=== PATIENT | male | born 1990 | race Caucasian/White ===

== ENCOUNTER 2017-04-23 02:49 | Emergency (ER) | payer BC, OTHER ==
[~2017-04-23] VITALS: Ht 172.7 cm; Wt 58.5 kg
[2017-04-23 03:06] VITALS: Ht 172.7 cm; Wt 58.5 kg
[2017-04-23] MEDS ORDERED: ETOMIDATE 20 MG INJ IV STA (03:10)
[2017-04-23] MEDS ORDERED: KETOROLAC 30 MG INJ IV STA (03:12)
--- NOTE | 2017-04-23 03:42 | ERD ---
ER Documentation Chief Complaint Date/Time DATE: 04/23/17 TIME: 03:40 Chief Complaint right shoulder pain possible dislocation HPI This is a 26-year-old male comes in with right shoulder dislocation. He said he had while he slept. This is the third dislocation of that shoulder. Denies any other trauma. Denies any other current issues. ROS All systems reviewed and are negative except as per history of present illness. Allergies Allergies: Coded Allergies: No Known Allergy (Unverified , 05/23/14) PMhx/Soc History of Surgery: No Anesthesia Reaction: No Hx Neurological Disorder: No Hx Respiratory Disorders: No Hx Cardiac Disorders: No Hx Psychiatric Problems: No Hx Miscellaneous Medical Probl: Yes (right shoulder dislocation) Hx Alcohol Use: Yes (occasionally) Hx Substance Use: No Hx Tobacco Use: Yes (quit) Smoking Status: Former smoker Physical Exam Vitals Vital Signs Date Time Temp Pulse Resp B/P Pulse Ox O2 Delivery O2 Flow Rate FiO2 04/23/17 03:37 57 21 111/75 100 Room Air 4.0 04/23/17 03:32 97 15 124/82 100 Nasal Cannula 4.0 04/23/17 03:27 58 19 117/84 100 Nasal Cannula 2.0 04/23/17 03:06 97.8 64 18 119/63 97 Physical Exam Const: [] Head: Atraumatic Eyes: Normal Conjunctiva ENT: Normal External Ears, Nose and Mouth. Neck: Full range of motion..~ No meningismus. Resp: Clear to auscultation bilaterally Cardio: Regular rate and rhythm, no murmurs Abd: Soft, non tender, non distended. Normal bowel sounds Skin: No petechiae or rashes Back: No midline or flank tenderness Ext: No cyanosis, or edema Neur: Awake and alert Psych: Normal Mood and Affect Results 24 hrs Current Medications Medications (Trade) Dose Ordered Sig/Sung Route PRN Reason Start Time Stop Time Status Last Admin Dose Admin Etomidate (Amidate) 20 mg ONCE STAT IV 04/23/17 03:10 04/23/17 03:12 DC Ketorolac Tromethamine (Toradol) 30 mg ONCE STAT IV 04/23/17 03:12 04/23/17 03:13 DC Procedures/MDM X-ray Shoulder 3V Interpreted by me: Bones: No fracture Joints: Obvious anterior dislocation. Foreign body: None Procedural Sedation: Pre-assessment performed. See preceding complete history and physical for details. Time out performed. See sedation documentation for details. Medication(s): Etomidate Complications: No hypoxic or apneic events Recovered without incident. Greater than 15 minutes of face to face time included in sedation and recovery. X-ray Shoulder 3V Interpreted by me: Bones: No fracture Joints: Anterior dislocation of the glenohumeral joint Foreign body: None Procedural Sedation: Pre-assessment performed. See preceding complete history and physical for details. Time out performed. See sedation documentation for details. Medication(s): Etomidate Complications: No hypoxic or apneic events Recovered without incident. Greater than 15 minutes of face to face time included in sedation and recovery. Shoulder Reduction by me: Anesthesia: None Location: Right shoulder Technique: christofer Results: Synagogue of normal anatomic positioning Compl: Neurovascularly intact post procedure. Sling Assessment: Neurovascularly intact post sling placement with good fit. Post-reduction X-ray Shoulder 3V Interpreted by me: Bones: No fracture Joints: Relocation of previously noted dislocation Foreign body: None Departure Diagnosis: Primary Impression: Shoulder dislocation Encounter type: initial encounter Laterality: right Qualified Code: S43.004A - Shoulder dislocation, right, initial encounter Condition: Stable VICENTE HUMPHRIES Apr 23, 2017 03:42
[2017-04-23] MEDS ORDERED: HYDR-902 PO (03:46)
--- NOTE | 2017-04-23 04:20 | RADRPT ---
PROCEDURE: XR right shoulder. CLINICAL INDICATION: dislocation TECHNIQUE: 2 views of the right shoulder were performed. COMPARISON: 05/23/2014 FINDINGS: Anteroinferior dislocation of the right humeral head is seen. No definite fracture. No other abnor mality is seen. No significant degenerative change. No definite soft tissue abnormality. IMPRESSION: Anterior shoulder dislocation.. RPTAT: [facility] Physician Guevara Date Time Electronically viewed and signed by Maye Shay Physician on 04/23/2017 04:19 LE/
--- NOTE | 2017-04-23 04:21 | RADRPT ---
PROCEDURE: XR right shoulder. CLINICAL INDICATION: Reduction of dislocation TECHNIQUE: Single view of the right shoulder was performed. COMPARISON: X-ray from earlier FINDINGS: The dislocation has been reduced. No fracture is seen. IMPRESSION: Successful reduction of dislocation.. RPTAT: [facility] Physician Guevara Date Time Electronically viewed and signed by Maye Shay Physician on 04/23/2017 04:20 LE/
[2017-04-23 04:35] VITALS: BP 119/78; PULSE 61; RESP 20; TEMP 97.8
== END 2017-04-23 04:36 | disposition home or self-care (01) ==
LOC: E/R 02:49
DX: S43.014A Anterior dislocation of right humerus, initial encounter (principal); R40.2142 Coma scale, eyes open, spontaneous, at arrival to emergency department; R40.2252 Coma scale, best verbal response, oriented, at arrival to emergency department; R40.2362 Coma scale, best motor response, obeys commands, at arrival to emergency department; X58.XXXA Exposure to other specified factors, initial encounter; Y92.9 Unspecified place or not applicable; Z87.891 Personal history of nicotine dependence
CPT/HCPCS: 23650; 73020; 73030; 94770; 96374; J1885; Z7502; Z7610

== ENCOUNTER 2018-05-10 15:45 | Emergency (ER) | END 2018-05-10 21:00 | disposition home or self-care (01) ==